=== PATIENT | female | born 1990 | race Two or more races ===

== ENCOUNTER 2017-03-28 07:44 | Inpatient (IN) | payer OTHER ==
[~2017-03-28] VITALS: Ht 170.2 cm; Wt 69.1 kg
[2017-03-28 08:24] VITALS: BP 109/74; PULSE 92; RESP 20
[2017-03-28 08:30] VITALS: Ht 170.2 cm; Wt 69.1 kg
[2017-03-28] MEDS ORDERED: MINERAL OIL LIGHT 10 ML VIAL TOP PRN (09:00)
[2017-03-28] MEDS ORDERED: LIDOCAINE 1% (MPF) 30 ML INJ INJ PRN (09:00)
[2017-03-28] MEDS ORDERED: OXYTOCIN 30 UNITS/LR 500 ML IV PRN ×2 (09:00→18:00)
[2017-03-28] MEDS ORDERED: MISOPROSTOL 200 MCG TAB PR PRN ×2 (09:00→18:00)
[2017-03-28] MEDS ORDERED: METHYLERGONOVINE 0.2 MG INJ IM PRN ×2 (09:00→18:00)
[2017-03-28] MEDS ORDERED: OXYTOCIN 30 UNITS/LR 500 ML IV SCH ×3 (09:00)
[2017-03-28] MEDS ORDERED: CARBOPROST 250 MCG INJ IM PRN ×2 (09:00→18:00)
[2017-03-28] MEDS ORDERED: LACTATED RINGER'S 1,000 ML IV PRN (09:00)
[2017-03-28] MEDS ORDERED: IBUPROFEN 600 MG TAB PO PRN (09:00)
[2017-03-28] MEDS ORDERED: BUTORPHANOL 2 MG INJ IV PRN (09:00)
[2017-03-28] MEDS: LACTATED RINGER'S 1,000 ML IV SCH ×2 (09:29→13:52)
[2017-03-28 10:28] LABS: BASOPHILS % 0.3 % (0.0-2.0); EOSINOPHILS % 0.4 % (0.0-7.0); HEMATOCRIT 38.4 % (37.0-47.0); HEMOGLOBIN 12.4 g/dl (12.0-16.0); LYMPHOCYTES # 1.4 10^3/ul (0.8-2.9); LYMPHOCYTES % 19.2 % (15.0-51.0); MEAN CORPUSCULAR HEMOGLOBIN 28.9 pg (29.0-33.0); MEAN CORPUSCULAR HGB CONC 32.3 g/dl (32.0-37.0); MEAN CORPUSCULAR VOLUME 89.5 fl (82.0-101.0); MEAN PLATELET VOLUME 10.5 fl (7.4-10.4); MONOCYTE # 0.6 10^3/ul (0.3-0.9); MONOCYTES % 7.8 % (0.0-11.0); NEUTROPHIL # 5.1 10^3/ul (1.6-7.5); NEUTROPHILS % 71.5 % (39.0-77.0); PLATELET COUNT 185 10^3/UL (140-415); RED BLOOD COUNT 4.29 10^6/ul (4.20-5.40); WHITE BLOOD COUNT 7.1 10^3/ul (4.8-10.8)
[2017-03-28 10:34] LABS: INR 0.86; PROTIME 11.7 Sec (12.2-14.2); PT RATIO 0.9
[2017-03-28 10:35] LABS: PARTIAL THROMBOPLASTIN TIME 26.2 Sec (25.0-35.0)
[2017-03-28] MEDS ORDERED: PREN1TAB79 PO (11:33)
[2017-03-28] MEDS ORDERED: FENTAnyl 2MCG/ML-ROPIV 0.2% 100 ML ONE (13:29)
[2017-03-28] MEDS: LACTATED RINGER'S 1,000 ML IV* SCH (17:50)
--- NOTE | 2017-03-28 17:50 | HP ---
Date/Time of Note Date/Time of Note DATE: 03/28/17 TIME: 17:47 OB - History Hx of Present Free Text/Dictation 26 years old [id number] here for post date IOL Chief Complaint: as abobe Last Menstrual Period: Jun 11, 2016 Estimated Due Date: Mar 21, 2017 : 2 Para: 1 Care: Good Care Ultrasounds: Normal mid trimester US Obstetrical Complications: None Medical Complications: None Past Family/Social History * Past Medical, Surgical, Family and Obstetric Histories reviewed from chart. Blood Type: O+ Rubella: immune RPR/VDRL: Negative GBS Status: Negative HBsAG: Negative OB Admission Exam Vital Signs Vital Signs Vital Signs Date Time Temp Pulse Resp B/P Pulse Ox O2 Delivery O2 Flow Rate FiO2 03/28/17 08:24 97.6 92 20 109/74 Room Air Last 72 hours Lab Results CBC & BMP 03/28/17 09:43 ROMAN HOGAN M.D. Mar 28, 2017 17:50
[2017-03-28] MEDS: IBUPROFEN 600 MG TAB PO SCH ×2 (18:00→23:42)
[2017-03-28] MEDS ORDERED: HYDROCODONE/APAP (5/325) TAB PO PRN ×2 (18:00)
--- NOTE | 2017-03-28 18:13 | LDN ---
Date/Time of Note Date/Time of Note DATE: 03/28/17 TIME: 18:12 Delivery Summary Weeks of Gestation 41 Placenta Delivered: Spontaneously Meconium: Light Episiotomy: No Anesthesia type: Epidural Estimated blood loss: 200 Sponge & Needle done & correct: Yes All needle counts correct: Yes Any foreign bodies felt in the: No Problems: ROMAN HOGAN M.D. Mar 28, 2017 18:13
[2017-03-28 20:35] VITALS: BP 113/59; PULSE 77; RESP 20
[2017-03-29] MEDS: LACTATED RINGER'S 1,000 ML IV SCH (00:32)
[2017-03-29] MEDS: LACTATED RINGER'S 1,000 ML IV* SCH (01:50)
[2017-03-29 04:26] VITALS: BP 118/74; PULSE 72; RESP 20
[2017-03-29] MEDS: IBUPROFEN 600 MG TAB PO SCH ×3 (05:45→17:24)
[2017-03-29 08:00] VITALS: BP 96/55; PULSE 66; RESP 19
[2017-03-29 08:09] LABS: BASOPHILS % 0.2 % (0.0-2.0); EOSINOPHILS % 0.3 % (0.0-7.0); HEMOGLOBIN 12.5 g/dl (12.0-16.0); LYMPHOCYTES # 2.1 10^3/ul (0.8-2.9); LYMPHOCYTES % 18.3 % (15.0-51.0); MEAN CORPUSCULAR HEMOGLOBIN 29.3 pg (29.0-33.0); MEAN CORPUSCULAR HGB CONC 32.9 g/dl (32.0-37.0); MEAN PLATELET VOLUME 10.5 fl (7.4-10.4); MONOCYTE # 0.9 10^3/ul (0.3-0.9); MONOCYTES % 7.9 % (0.0-11.0); NEUTROPHIL # 8.5 10^3/ul (1.6-7.5); NEUTROPHILS % 72.8 % (39.0-77.0); PLATELET COUNT 174 10^3/UL (140-415); RED BLOOD COUNT 4.27 10^6/ul (4.20-5.40); RED CELL DISTRIBUTION WIDTH 12.8 % (11.5-14.5); WHITE BLOOD COUNT 11.7 10^3/ul (4.8-10.8)
[2017-03-29] MEDS ORDERED: LANOLIN 7 GM TUBE TOP PRN (14:00)
[2017-03-29 15:57] VITALS: BP 121/63; PULSE 90; RESP 18
[2017-03-29] MEDS ORDERED: INFLUENZA VIRUS VACCINE 0.5 ML SYG IM* ONE (16:00)
[2017-03-29 19:40] VITALS: BP 109/62; PULSE 72; RESP 18
[2017-03-30 04:00] VITALS: BP 105/60; PULSE 68; RESP 18
[2017-03-30 08:30] VITALS: BP 100/57; PULSE 61; RESP 14
[2017-03-30] MEDS: IBUPROFEN 600 MG TAB PO SCH ×2 (12:00)
== END 2017-03-30 14:05 | disposition home or self-care (01) | DRG 775 ==
LOC: L-D 07:44 → UNDOADMIN 07:44 → L-D 07:51 → PP1 20:40
PROVIDERS: ADMIT Obstetrics & Gynecology; ATTEND Obstetrics & Gynecology
PROC: 10E0XZZ Delivery of Products of Conception, External Approach (ICD-10-PCS; principal; 2017-03-28 08:00)
DX: O48.0 Post-term pregnancy (principal); Z37.0 Single live birth; Z3A.41 41 weeks gestation of pregnancy
CPT/HCPCS: 62319; 85025; 85610; 85730; 86592; 86900; 86901; 87340; 90686; J2590; J3010; J7120